=== PATIENT | female | born 1965 | race Caucasian/White ===

== ENCOUNTER → 2016-12-08 | Outpatient (CLI) | payer OTHER ==
[~2016-12-08] MED LIST: GADAVIST IV PRN
--- NOTE | 2016-12-09 12:36 | MAMMOGRAPHY REPORT ---
BREAST MRI OF BOTH BREASTS : 12/08/2016 CLINICAL HISTORY: History of left breast cancer status post lumpectomy then subsequent bilateral mas tectomies with implant reconstruction. Her implants were placed approximately 6 weeks ago. The patie nt reports no current complaints. She also had a benign MRI guided biopsy 01/13/2016. COMPARISON: Comparison is made to exams dated: 01/13/2016 mammogram, 01/13/2016 MRI biopsy, 11/25/2015 breast MRI, and 02/03/2015 breast MRI - [facility]. Technique: The patient was placed prone in a dedicated breast imaging coil. Precontrast axial T1-we ighted, axial and sagittal T2-weighted fat saturation, axial and sagittal T2 STIR sequences, and axi al T1-weighted fat saturation images were obtained. After the administration of 6 mL of Gadavist IV contrast, sequential T1-weighted fat saturation images were obtained. Subtraction images were obta ined of the dynamic contrast enhanced sequences, and 3-D reformations were performed. The Safello was used for kinetic analysis. Findings: There are expected postsurgical changes from bilateral mastectomies with reconstruction. Bilateral subpectoral silicone implants are noted, which are intact without evidence of intracapsular or extra capsular rupture. There are no suspicious enhancing masses or areas of abnormal enhancement within either reconstructed breast. There is no evidence of axillary adenopathy. The chest wall structures are negative. Visualized ex tramammary soft tissues are grossly unremarkable. IMPRESSION: ACR BI-RADS CATEGORY 2: BENIGN Status post bilateral mastectomies with implant reconstruction, with no MRI evidence of malignancy i n either reconstructed breast. No evidence of implant rupture. The preliminary results of the MRI were discussed with the patient on the day of the exam. She was also scheduled for followup diagnostic mammograms and possible ultrasound. Given the history of bhumika ateral mastectomies and given the patient had no palpable lumps or other complaints, mammograms/car[address] st ultrasound were not performed. Carmen Pinto M.D. /:12/08/2016 18:22:57 Mica Washer Gluer: zigzag stitcher, [facility] letter sent: Normal 1/2 BI-RADS Code: ACR BI-RADS Category 2: Benign
== END | disposition home or self-care (01) ==
LOC: C.MRI 08:01
PROVIDERS: ATTEND Family Medicine
DX: Z12.31 Encounter for screening mammogram for malignant neoplasm of breast (principal); D05.12 Intraductal carcinoma in situ of left breast